=== PATIENT | female | born 1990 | race Two or more races ===

== ENCOUNTER 2024-07-16 09:15 | Observation (INO) | payer BC, SELFPAY ==
[2024-07-11 11:24] VITALS: BMI 50.8
[2024-07-11 12:11] LABS: Basophils % (Auto) 0 % (0-2.5); Eosinophils # (Auto) 0.1 Thou/mm3 (0.0-0.5); Eosinophils % (Auto) 1 % (0-10); Hematocrit 39.9 % (36.0-46.0); Hemoglobin 13.5 g/dL (12.0-16.0); Immature Granulocytes % (Auto) 0 % (0-0); Immature Granulocytes Auto 0.04 Thou/mm3 (0.00-0.00); Lymphocytes # (Auto) 2.7 Thou/mm3 (1.0-4.8); Lymphocytes % (Auto) 24 % (10-50); Mean Corpuscular HGB Conc 33.8 g/dl (31.0-37.0); Mean Corpuscular Hemoglobin 29.7 pg (25.0-35.0); Mean Corpuscular Volume 88 fL (80-100); Monocytes # (Auto) 0.7 Thou/mm3 (0.0-0.8); Monocytes % (Auto) 6 % (0-12); Neutrophils # (Auto) 7.4 Thou/mm3 (1.8-7.7); Neutrophils % (Auto) 68 % (37-80); Nucleated Red Blood Cell % 0 /100 WBC (0); Platelet Count 401 Thou/mm3 (140-440); RDW Standard Deviation 43.6 fL (36.4-46.3); Red Blood Count 4.54 Miln/mm3 (4.00-5.20); White Blood Count 10.9 Thou/mm3 (3.6-11.0)
[2024-07-11 12:22] LABS: HCG,Qualitative Serum Positive
[2024-07-11 12:34] LABS: HIV (1&2) Antibody Rapid Non-Reactive
[2024-07-11 13:12] LABS: Hepatitis A Antibody IgM Non Reactive (Non React); Hepatitis B Core Antibody IgM Non Reactive (Non React); Hepatitis B Surface Antigen Non Reactive (Non React); Hepatitis C Antibody Non Reactive (Non React)
[2024-07-16] VITALS (113 sets, daily range): BP systolic 107–143; BP diastolic 50–90; PULSE 62–103; RESP 15–20; TEMP 36.2–36.8; O2SAT 91–99; BMI 52.1
[2024-07-16] MEDS: RINGERS LACTATED 1000 ML 1,000 ML 20 ML IV (06:24)
[2024-07-16] MEDS: INDOMETHACIN 25 MG CAPSULE 50 MG PO ×2 (07:09→13:32)
--- NOTE | 2024-07-16 07:20 | CHAP ---
Visited briefly with patient giving words of encouragement and prayer.
--- NOTE | 2024-07-16 07:31 | XR_ITS ---
Examination: age Limited TECHNIQUE: Limited transabdominal sonographic images pelvis Exam date and time: July 16, 2024 0743 hours INDICATIONS: 18 week preop cervical cerclage today position requires heart tones FINDINGS: Cardiac motion 136 BPM IMPRESSION: Cardiac motion 136 BPM
--- NOTE | 2024-07-16 07:44 | PD.LDHP ---
Documentation for date of: 07/16/24 OB Labor/Induct. HPI History of Present Illness History of sections: Yes (x1) History of present illness: 34 y/o @17w5d admitted for a history indicated cerclage. Gestational age was confirmed by first trimester ultrasound at bedside in the office patient has a normal NIPT is waiting for her anatomy scan. Patient was counseled about the other option of waiting to see what is her cervical length in this to confirm cervical shortening. However patient desires to go forward with the cervical encerclage as she does not want the same thing to happen in this . Significant history of 23-week cervical incompetence where she came complaining of mucus discharge and was found to be advanced dilated with breech presentation. Patient denied any bleeding or infection at that . Patient had classical because of breech presentation. H/O HTN and diabetes . History of Present Dating criteria: LMP confirmed by 1st trimester US Labs Maternal Blood Type: AB Pos Narrative: Maternity test low risk of aneuploidy Past Medical History Surgical History SURGICAL: Positive Section (x1) Meds Home Medications and Allergies Home Medications ?Medication ?Instructions ?Recorded ?Confirmed ?Type aspirin 81 mg capsule 81 mg PO QDAY 07/11/24 07/16/24 History vit no.95-ferrous 1 tab PO DAILY 07/11/24 07/11/24 History fumarate 28 mg-folic acid 800 mcg tablet () Allergies Allergy/AdvReac Type Severity Reaction Status Date / Time No Known Allergies Allergy Verified 07/16/24 08:34 OB Exam Physical Exam Vital signs: Temp Pulse Resp BP Pulse Ox 97.2 F 83 17 143/77 H 96 07/16/24 07:09 07/16/24 06:18 07/16/24 06:18 07/16/24 06:18 07/16/24 06:18 Constitutional Constitutional: no acute distress Routine HEENT Exam Head: Present normocephalic and atraumatic Eye: Present EOMI and PERRL ENT: Present mucous membranes moist Routine Neck Exam Neck: Present supple and trachea midline Routine Cardiovascular Exam Cardiovascular: Present RRR Routine Abdominal Exam Abdominal: Present soft and normoactive bowel sounds Routine Extremities Exam Extremities: Present full ROM Routine Skin Exam Skin: Present intact, dry and warm Routine Neurological Exam Neurological: Present alert, oriented X3 and CN II-XII intact Routine Psychiatric Exam Psychiatric: Present normal affect and normal thought process OB Results Labs 07/11/24 11:42 Impressions Impression: 34-year-old 5 para 0-1-3-1 at 17w5d admitted for history indicated cervical encerclage. History of 23-week classical secondary to cervical incompetence Today heart tones were obtained both by Doppler and ultrasound Indomethacin given OB Assessment & Plan Assessment and Plan (1) History of cervical incompetence: Status: Acute Additional Plan Additional Plan Comment: Proceed for cerclage placement
--- NOTE | 2024-07-16 08:07 | XR_ITS ---
Examination: age Limited TECHNIQUE: Limited transabdominal sonographic images pelvis Exam date and time: July 16, 2024 0908 hours INDICATIONS: Post procedure, cervical cerclage today FINDINGS: Viable intrauterine gestation Cardiac motion 135 BPM Amniotic fluid index 7.4 cm IMPRESSION: Cardiac motion 135 BPM
--- NOTE | 2024-07-16 08:50 | SUR.PHASEI ---
0850 Patient arrived to recovery resting comfortably in [facility], drowsy and talking with this conventional underwriter, breathing unlabored, vital signs stable, denies pain, dressing intact to vaginal area; peripad, no bleeding noted, lung sounds clear upon auscultation, bilateral radial pulses present when palpated, report received from Dr. Carrion and Alan CHAVARRIA
--- NOTE | 2024-07-16 09:10 | SUR.PHASEI ---
0910 Dr. Mitchell at bedside during ultrasound, no new orders noted, patient tolerated ultrasound well, denies pain
--- NOTE | 2024-07-16 09:20 | ESOP_ITS ---
Operative Note - DEBT RECOVERY OFFICER Procedure Date of procedure: 07/16/24 Procedure Performed: Cervical encerclage Indication: History indicated History of 23-week classical done secondary to cervical incompetence presenting and advanced cervical dilation and baby being breech presentation Gestational age confirmed by first trimester ultrasound Aneuploidy ruled out Pre-Op diagnosis: Same Post-Op diagnosis: Same Anesthesia type: General Procedure description: Patient was taken to the operating room. General anesthesia was given without any complications.? A time out was given confirming Katharina Albert was undergoing the following, procedure,allergies, and surgeon.The patient was positioned in the dorsal lithotomy position. The bladder was emptied. The perineum was prepped with Betadine solution per routine. On examination cervix was looking very fragile and was bleeding to touch indicating possible cervicitis. Flagyl was ordered IntraOp. External os was open however internal os appeared on speculum examination to be closed. patient was placed in deep Tr endelenburg position. Gloved fingers were inserted to push the membranes up. Ring forceps were used to grasp anterior and posterior lip of the cervix. Using Mersilene tape, a deep bite into the cervical stroma was taken at 12 o'clock position coming out at 10 o'clock position and a pursestring suture was placed all around the cervix avoiding 3:00 and 9 o'clock position. Care was taken not to go through into the endocervical canal and cerclage was tightened at 12 o'clock position and long stitch was kept for easy removal after secure knots. Patient was transferred in stable condition to recovery Estimated blood loss (ml): 5 Surgical staff Operation Date: 07/16/24 07:30 Case Staff Anesthesiologist: Howard Carrion RNoffice services associate: Chiquis Singleton Diagnosis Problem List Completed Was Problem List Reviewed/Reconciled?: Yes
--- NOTE | 2024-07-16 09:25 | SUR.PHASEII ---
4102 patient eating ice chips; tolerating well, patient at bedside
--- NOTE | 2024-07-16 09:47 | SUR.PHASEII ---
0942 Report given to Richi CHAVARRIA, patient meets discharge criteria from recovery, awake and alert, breathing unlabored, vital signs stable, denies pain, dressing intact; no bleeding noted, patient eating ice chips;tolerating well, denies nausea, patient at bedside with patient. 0947 Patient transported via gurney to room 458 without incident.
[2024-07-16] MEDS: ceFAZolin/D5W 1 GM IVPB 1 GM/50 ML BAG IV (10:26)
--- NOTE | 2024-07-16 17:00 | XR_ITS ---
Examination: Complete OB ultrasound greater than 14 weeks Date and time of exam: July 16, 2024 7004 hours INDICATIONS: Status post cervical cerclage today Findings: Viable intrauterine single fetus with single amniotic sac presentation cephalic Cardiac motion 152 BPM Placenta posterior grade 1 Umbilical cord insertion 3 vessel seen Amniotic fluid adequate Cervix 3.3 cm closed spine posterior. Composite estimated gestational age based on BPD, head circumference, abdominal circumference, femur length is 18 weeks 3 days Estimated weight 228 g Ovaries obscured by bowel gas. Survey of intracranial anatomy, spinal anatomy, abdominal anatomy, four-chamber heart performed with no abnormalities identified. Impression: Viable intrauterine gestation in cephalic presentation Cervix 3.3 cm closed.
== END 2024-07-16 18:50 | disposition home or self-care (01) ==
LOC: S4SX 09:52
PROVIDERS: Admitting Provider Student in an Organized Health Care Education/Training Program; PCP Family Medicine; Referring Provider Student in an Organized Health Care Education/Training Program; Visit Provider Student in an Organized Health Care Education/Training Program
PROC: 0UVC7ZZ Restriction of Cervix, Via Natural or Artificial Opening (ICD-10-PCS; CPT 57700; principal; 2024-07-16 07:30)
DX: O34.32 Maternal care for cervical incompetence, second trimester (principal); Z3A.23 23 weeks gestation of pregnancy
CPT/HCPCS: 59320; 36415; 76805; 76815; 80074; 84703; 85025; 86703; 86850; 86900; 86901; A4217; A4649; G0378; J0689; J1200; J2371; J2704; J2765; J3010; J7120; A9270

== ENCOUNTER 2024-11-18 10:12 | Outpatient (CLI) | payer BC, SELFPAY ==
[2024-11-18 10:25] VITALS: BP 140/83; PULSE 78
[2024-11-18 10:30] VITALS: BP 144/84; PULSE 88; RESP 16; RESP 99; TEMP 36.4; BMI 50.5
[2024-11-18 10:35] VITALS: BP 145/87; PULSE 56
[2024-11-18 10:42] VITALS: BP 128/71; PULSE 61
[2024-11-18] MEDS: BETAMET ACET/BETAMET NA PH (Celestone) 6 MG/ML VIAL 12 MG IM (10:47)
== END 2024-11-18 11:02 | disposition home or self-care (01) ==
LOC: S4S1 10:15 → S4SX 10:15
PROVIDERS: Referring Provider Student in an Organized Health Care Education/Training Program; Visit Provider Student in an Organized Health Care Education/Training Program
DX: Z34.83 Encounter for supervision of other normal pregnancy, third trimester (principal); Z36.9 Encounter for antenatal screening, unspecified; Z3A.35 35 weeks gestation of pregnancy
CPT/HCPCS: 59025; 96372; J0702

== ENCOUNTER 2024-11-20 08:22 | Outpatient (RCR) | payer BC, SELFPAY ==
--- NOTE | 2024-11-10 08:42 | XR_ITS ---
Examination: Biophysical profile, ultrasound Date and time of exam: November 10, 2024 0854 hours INDICATIONS: Examination for supervision of normal Technique: Multiple transabdominal sonographic images of the pelvis abdomen obtained. Attention is directed to the breathing movement, gross body movement, amniotic fluid volume and tone. Findings: Amniotic fluid index 18.7 cm Total biophysical profile is 8 of 8. breathing movement is 2. Gross body movement is 2. tone is 2. Qualitative amniotic fluid volume is 2 Impression: Biophysical profile is 8 of 8.
[2024-11-10 09:48] VITALS: BP 114/76; PULSE 76; RESP 17; TEMP 36.4
--- NOTE | 2024-11-13 08:22 | XR_ITS ---
Examination: Biophysical profile, ultrasound Date and time of exam: November 13, 2024 0849 hours INDICATIONS: Diagnosis examination for supervision of normal Technique: Multiple transabdominal sonographic images of the pelvis abdomen obtained. Attention is directed to the breathing movement, gross body movement, amniotic fluid volume and tone. Findings: Amniotic fluid 15.4 cm Total biophysical profile is 8 of 8. breathing movement is 2. Gross body movement is 2. tone is 2. Qualitative amniotic fluid volume is 2 Impression: Biophysical profile is 8 of 8.
[2024-11-13 09:10] VITALS: BP 130/65; PULSE 76; RESP 16; TEMP 36.1
--- NOTE | 2024-11-17 08:36 | XR_ITS ---
Examination: Biophysical profile, ultrasound Date and time of exam: November 17, 2024 0837 hours INDICATIONS: Supervision of normal Technique: Multiple transabdominal sonographic images of the pelvis abdomen obtained. Attention is directed to the breathing movement, gross body movement, amniotic fluid volume and tone. Findings: Amniotic fluid index 14.9 cm Total biophysical profile is 8 of 8. breathing movement is 2. Gross body movement is 2. tone is 2. Qualitative amniotic fluid volume is 2 Impression: Biophysical profile is 8 of 8.
[2024-11-17 09:09] VITALS: BP 147/87; PULSE 90; RESP 16; TEMP 36.7
[2024-11-17] MEDS: BETAMET ACET/BETAMET NA PH (Celestone) 6 MG/ML VIAL 12 MG IM (10:00)
[2024-11-17 10:35] LABS: Basophils # (Auto) 0.0 Thou/mm3 (0.0-0.2); Basophils % (Auto) 0 % (0-2.5); Eosinophils # (Auto) 0.1 Thou/mm3 (0.0-0.5); Eosinophils % (Auto) 1 % (0-10); Hematocrit 38.7 % (36.0-46.0); Hemoglobin 13.0 g/dL (12.0-16.0); Immature Granulocytes Auto 0.03 Thou/mm3 (0.00-0.00); Lymphocytes # (Auto) 2.0 Thou/mm3 (1.0-4.8); Lymphocytes % (Auto) 21 % (10-50); Mean Corpuscular HGB Conc 33.6 g/dl (31.0-37.0); Mean Corpuscular Hemoglobin 29.9 pg (25.0-35.0); Mean Corpuscular Volume 89 fL (80-100); Monocytes # (Auto) 0.6 Thou/mm3 (0.0-0.8); Monocytes % (Auto) 6 % (0-12); Neutrophils # (Auto) 6.6 Thou/mm3 (1.8-7.7); Neutrophils % (Auto) 71 % (37-80); Nucleated Red Blood Cell # 0.00 Thou/mm3 (0.00-0.00); Nucleated Red Blood Cell % 0 /100 WBC (0); Platelet Count 313 Thou/mm3 (140-440); RDW Standard Deviation 45.6 fL (36.4-46.3); Red Blood Count 4.35 Miln/mm3 (4.00-5.20); White Blood Count 9.3 Thou/mm3 (3.6-11.0)
[2024-11-17 10:38] LABS: Collection Type, Urine Clean Catch
[2024-11-17 11:01] LABS: Bacteria,Urine Rare; Bilirubin,Urine Negative (Negative); Blood,Urine Negative (Negative); Clarity,Urine Turbid (Clear/Hazy); Color,Urine Yellow (Lt Yel-Yel); Glucose, Urine Negative (Negative); Ketones,Urine Negative (Negative); Leukocyte Esterase,Urine Positive (Negative); Nitrite,Urine Negative (Negative); PH,Urine 6.0 (5.0-7.0); Protein,Urine 1+ (Neg - Trace); RBC,Urine 6 /hpf (0-3); Specific Gravity,Urine 1.026 (1.001-1.035); Squamous Epithelial Cell,Urine 37 /hpf (0-5); Urobilinogen,Urine 3.0 mg/dL (0.0-1.0); WBC,Urine 19 /hpf (0-5)
[2024-11-17 11:13] LABS: Fibrinogen 578 mg/dL (175-375); INR 0.9 (0.9-1.3); Partial Thromboplastin Time 28.8 Seconds (22.0-36.0); Prothrombin Time 10.3 Seconds (9.0-12.2)
[2024-11-17 11:15] LABS: Alanine Aminotransferase 8 U/L (10-49); Albumin, Serum 3.5 gm/dL (3.5-5.0); Albumin/Globulin Ratio 1.4 (1.2-2.2); Alkaline Phosphatase 124 U/L (46-116); Anion Gap 9 (7-16); Aspartate Amino Transferase 12 U/L (0-34); BUN/Creatinine Ratio 9 Ratio (12-20); Bilirubin,Total 0.4 mg/dL (0.3-1.2); Blood Urea Nitrogen 6 mg/dL (9-23); Calcium 8.5 mg/dL (8.3-10.6); Calcium (Corrected) 8.9 mg/dL (8.5-10.1); Carbon Dioxide 21.7 mMol/L (20.0-31.0); Chloride 109 mMol/L (98-107); Creatinine (Component) 0.7 mg/dL (0.6-1.3); Globulin 2.5 gm/dL (2.3-3.5); Glucose 74 mg/dL (74-106); LDH (Lactate Dehydrogenase) 153 U/L (120-246); Osmolality,Calculated 276 (275-295); Potassium 3.5 mMol/L (3.4-5.1); Sodium 140 mMol/L (136-145); Total Protein 6.0 gm/dL (5.7-8.2); Uric Acid 4.8 mg/dL (3.1-7.8); eGFR > 60 See Note
--- NOTE | 2024-11-20 08:28 | XR_ITS ---
Examination: Biophysical profile, ultrasound Date and time of exam: November 20, 2024 0837 hours INDICATIONS: Supervision of normal , scheduled tomorrow preop Technique: Multiple transabdominal sonographic images of the pelvis abdomen obtained. Attention is directed to the breathing movement, gross body movement, amniotic fluid volume and tone. Findings: Amniotic fluid index 14.9 cm Total biophysical profile is 8 of 8. breathing movement is 2. Gross body movement is 2. tone is 2. Qualitative amniotic fluid volume is 2 Impression: Biophysical profile is 8 of 8.
[2024-11-20 09:03] VITALS: BP 100/55; PULSE 67; RESP 16; TEMP 36.4
== END 2024-11-20 23:59 | disposition home or self-care (01) ==
LOC: S4S1 08:22
PROVIDERS: Obstetrics & Gynecology; Referring Provider Student in an Organized Health Care Education/Training Program; Visit Provider Student in an Organized Health Care Education/Training Program
DX: Z34.83 Encounter for supervision of other normal pregnancy, third trimester (principal); Z3A.35 35 weeks gestation of pregnancy
CPT/HCPCS: 36415; 59025; 76819; 80053; 81001; 83615; 84550; 85025; 85384; 85610; 85730; 96372; J0702

== ENCOUNTER 2024-11-21 09:35 | Inpatient (IN) | payer BC, SELFPAY ==
[2024-11-21] VITALS (14 sets, daily range): BP systolic 108–153; BP diastolic 59–87; PULSE 58–79; RESP 13–21; TEMP 36.4–36.6; O2SAT 96–99; BMI 54.6
[2024-11-21 10:42] LABS: Basophils # (Auto) 0.0 Thou/mm3 (0.0-0.2); Basophils % (Auto) 0 % (0-2.5); Eosinophils # (Auto) 0.1 Thou/mm3 (0.0-0.5); Eosinophils % (Auto) 1 % (0-10); Hematocrit 40.7 % (36.0-46.0); Hemoglobin 13.9 g/dL (12.0-16.0); Immature Granulocytes Auto 0.06 Thou/mm3 (0.00-0.00); Lymphocytes # (Auto) 2.8 Thou/mm3 (1.0-4.8); Lymphocytes % (Auto) 24 % (10-50); Mean Corpuscular HGB Conc 34.2 g/dl (31.0-37.0); Mean Corpuscular Hemoglobin 30.0 pg (25.0-35.0); Mean Corpuscular Volume 88 fL (80-100); Monocytes # (Auto) 0.8 Thou/mm3 (0.0-0.8); Monocytes % (Auto) 7 % (0-12); Neutrophils # (Auto) 8.0 Thou/mm3 (1.8-7.7); Neutrophils % (Auto) 68 % (37-80); Nucleated Red Blood Cell # 0.00 Thou/mm3 (0.00-0.00); Nucleated Red Blood Cell % 0 /100 WBC (0); Platelet Count 339 Thou/mm3 (140-440); RDW Standard Deviation 44.8 fL (36.4-46.3); Red Blood Count 4.64 Miln/mm3 (4.00-5.20); White Blood Count 11.8 Thou/mm3 (3.6-11.0)
[2024-11-21 11:05] LABS: Alanine Aminotransferase 11 U/L (10-49); Albumin, Serum 3.6 gm/dL (3.5-5.0); Albumin/Globulin Ratio 1.4 (1.2-2.2); Alkaline Phosphatase 121 U/L (46-116); Anion Gap 12 (7-16); Aspartate Amino Transferase 17 U/L (0-34); BUN/Creatinine Ratio 10 Ratio (12-20); Bilirubin,Total 0.4 mg/dL (0.3-1.2); Blood Urea Nitrogen 6 mg/dL (9-23); Calcium 8.4 mg/dL (8.3-10.6); Calcium (Corrected) 8.7 mg/dL (8.5-10.1); Carbon Dioxide 20.8 mMol/L (20.0-31.0); Chloride 108 mMol/L (98-107); Creatinine (Component) 0.6 mg/dL (0.6-1.3); Estimated Creatinine Clearance 174.0 mL/min (>60); Globulin 2.6 gm/dL (2.3-3.5); Glucose 70 mg/dL (74-106); Osmolality,Calculated 276 (275-295); Potassium 3.8 mMol/L (3.4-5.1); Sodium 141 mMol/L (136-145); Total Protein 6.2 gm/dL (5.7-8.2); Uric Acid 5.2 mg/dL (3.1-7.8); eGFR > 60 See Note
[2024-11-21 11:16] LABS: Fibrinogen 430 mg/dL (175-375); INR 1.0 (0.9-1.3); Partial Thromboplastin Time 26.4 Seconds (22.0-36.0); Prothrombin Time 10.5 Seconds (9.0-12.2)
[2024-11-21 11:20] LABS: Syphilis Nonreactive (Nonreactive)
--- NOTE | 2024-11-21 11:51 | ESHP_ITS ---
Documentation for date of: 11/21/24 OB Labor/Induct. HPI History of Present Illness : 5 Para: 1 Term pregnancies: 0 pregnancies: 1 Living children: 0 History of Abortions: Spontaneous and Elective: 3 History of sections: Yes (2022) History of : No VIRGILIO: 12/19/24 Gestational Age (weeks): 36 Gestational Age (days): 0 History of present illness: 34y/o @36w0d here for repeat low-transverse . Patient had a previous history of classical c/s x1 @23 weeks. Patient came in with cervical incompetence and because of breech presentation was done. Denies PMH. Gastric sleeve surgery in 2001. gtt -ve , on Aspirin NIPT wnl. Given the history of cervical incompetence, Prophylactic cerclage placed , Anatomy is positive for pylectasis 4 mm. GTT wnl As a repeat is planned for previous classical section , Steroids 2 doses were given on and 18 November. Patient has signed sterilization consent and would like to proceed with the permanent sterilization procedure today History of Present Dating criteria: LMP confirmed by 1st trimester US Narrative: Anatomy normal except for pyelectasis of 4 mm Posterior placenta Labs Labs: Negative: RPR, Hepatitis B, Rubella Titre, HIV, Chlamydia and Gonorrhea and Unknown: Herpes Type 1, Herpes Type 2, Group Beta Strep and Covid- 19 Review of Systems Review of Systems Systems Reviewed: All systems reviewed, normal except as documented Constitutional Constitutional: Reports system reviewed and no additional complaints, except as documented, Denies fever(s) and Denies headache(s) Eyes Eyes: Reports system reviewed and no additional complaints, except as documented and Denies blurry vision ENT Ears, Nose, Mouth, and Throat: Reports system reviewed and no additional complaints, except as documented, Denies headache(s), Denies nasal congestion and Denies nasal discharge Cardiovascular Cardiovascular: Reports system reviewed and no additional complaints, except as documented, Denies chest pain and Denies dyspnea Respiratory Respiratory: Reports system reviewed and no additional complaints, except as documented, Denies chest congestion, Denies cough and Denies dyspnea Gastrointestinal Gastrointestinal: Reports system reviewed and no additional complaints, except as documented and Denies abdominal pain Genitourinary Genitourinary: Reports system reviewed and no additional complaints, except as documented and Reports abnormal vaginal bleeding Integumentary/Breasts Skin/Breast: Reports system reviewed and no additional complaints, except as documented and Denies rash Neurologic Neurologic: Reports system reviewed and no additional complaints, except as documented, Reports as per HPI and Denies headache(s) Past Medical History Surgical History SURGICAL: Positive Section (2022) Meds Home Medications and Allergies Home Medications ?Medication ?Instructions ?Recorded ?Confirmed ?Type aspirin 81 mg capsule 81 mg PO QDAY 07/11/2411/21 History vit no.95-ferrous 1 tab PO DAILY 07/11/2405/17 History fumarate 28 mg-folic acid 800 mcg tablet () Allergies Allergy/AdvReac Type Severity Reaction Status Date / Time No Known Allergies Allergy Verified 11/21/24 11:00 OB Exam Physical Exam Vital signs: Pulse BP 78 140/86 H 11/21/24 09:53 11/21/24 09:53 Constitutional Constitutional: no acute distress Routine HEENT Exam Head: Present normocephalic and atraumatic Eye: Present EOMI and PERRL ENT: Present mucous membranes moist Routine Neck Exam Neck: Present supple and trachea midline Routine Cardiovascular Exam Cardiovascular: Present RRR Routine Abdominal Exam Abdominal: Present soft and normoactive bowel sounds Detailed Labor and Delivery Exam Comments: Category 1 heart tone No contractions Routine Extremities Exam Extremities: Present full ROM Routine Skin Exam Skin: Present intact, dry and warm Routine Neurological Exam Neurological: Present alert, oriented X3 and CN II-XII intact Routine Psychiatric Exam Psychiatric: Present normal affect and normal thought process OB Results Labs 11/21/24 10:20 11/21/24 10:20 Labs: Short CBC 11/21/24 Range/Units 10:20 WBC 11.8 H (3.6-11.0) Thou/mm3 Hgb 13.9 (12.0-16.0) g/dL Hct 40.7 (36.0-46.0) % Plt Count 339 (140-440) Thou/mm3 BMP 11/21/24 10:20 Sodium 141 Potassium 3.8 Chloride 108 H Carbon Dioxide 20.8 BUN 6 L Creatinine 0.6 Glucose 70 L Calcium 8.4 Liver Function 11/21/24 Range/Units 10:20 Total Bilirubin 0.4 (0.3-1.2) mg/dL AST 17 (0-34) U/L ALT 11 (10-49) U/L Alkaline Phosphatase 121 H (46-116) U/L Albumin 3.6 (3.5-5.0) gm/dL Impressions Impression: 34-year-old admitted for repeat low-transverse for a previous classical history at 36 weeks. Betamethasone x 2 given Anatomy posterior placenta Desires sterilization consent signed Cervical send cerclage placed in second trimester will be removed before the C- section OB Assessment & Plan Additional Plan Additional Plan Comment: Repeat low-transverse Bilateral salpingectomy Cerclage removal Antibiotic prophylaxis DVT prophylaxis
[2024-11-21] MEDS: ceFAZolin/D5W 2 GM IV 2 GM/100 ML BAG IV (12:13)
[2024-11-21] MEDS: METOCLOPRAMIDE INJ 5 MG/ML VIAL 2 ML 10 MG IVP (12:13)
[2024-11-21] MEDS: ceFAZolin/D5W 1 GM IVPB 1 GM/50 ML BAG IV (12:13)
[2024-11-21] MEDS: FAMOTIDINE INJ 10 MG/ML VIAL 2 ML 20 MG IV (12:14)
[2024-11-21] MEDS: MEPERIDINE INJ 50 MG/ML VIAL IVP (13:38)
[2024-11-21] MEDS: OXYTOCIN in NS 20 units 20 UNIT/1,000 ML BAG 125 UNIT IV ×2 (15:12→23:13)
--- NOTE | 2024-11-21 16:07 | ESOP_ITS ---
Operative Note - COLLECTIONS TECHNICIAN Procedure Date of procedure: 11/21/24 Procedure Performed: cervical cerclage removal Repeat low transverse C section bilateral salpingectomy Indication: previous classical Csection desitres sterilisatuion History indicated cerclage placement morbid obesity Pre-Op diagnosis: same Post-Op diagnosis: same Anesthesia type: Spinal Procedure description: Informed consent was obtained and the patient was taken to the operating room.? Identity was confirmed by double identifiers and she was placed on the operating table.The abdomen and perineum were prepped in the usual sterile fashion and a Us catheter was placed to continuous drainage.? Sterile drapes were applied.??A Pfannenstiel skin incision was made with a scalpel and carried to the subcutaneous fat up to the rectus fascia.? The rectus fascia was incised on either side of the midline and the incisions were extended bilaterally.? The fascia was gently dissected off the ventral surface of the rectus muscle only superiorly. peritoneum opened after making sure no adhesions are there underneath. bladder flap carefully created, then hysterotomy incision made and extended bluntly with finger. placenta edge was Rupture of membranes revealed clear fluid. The baby was found in cephalic presentation and was delivered via vertex. the umbilical cord , was doubly clamped, divided and the infant was handed over to the waiting team. The placenta delivered by controlled cord traction . The interior of the uterus was now thorougly cleaned of all blood and debris and membranes.?The? hysterotomy was closed using 0 vicryl suture in double layers. Once the repair was completed the hysterotomy was inspected, was noted to be adequately hemostatic.. Bilateral salpingectomy done with enseal Then the rectus fascia was repaired using Vicryl 0 in a running fashion.? The subcutaneous layer was now, approximated with 3-0 vicryl in double layers.? All bleeding points were cauterized using the Bovie.?The skin was closed using 4-0 Monocryl in a subcuticular fashion.? The skin was cleaned and a sterile dressing was applied. The patient was now undraped, the abdomen and back were thoroughly cleaned and she was now transferred to the recovery room in a stable condition. Cervical encerclage was removed through a vaginal procedure Estimated blood loss (ml): 500 Complications: none Surgical staff Operation Date: 11/21/24 12:30 Case Staff REFRACTORY GRINDER OPERATOR: Irwin Ray RN First Assistant: Jaiden Jett Diagnosis Problem List Completed Was Problem List Reviewed/Reconciled?: Yes
--- NOTE | 2024-11-21 16:12 | PD.LDDELS ---
Data (Hernandez) Data Hx Section: Yes (2022) : 5 Term: 0 : 1 Livin Abortions: Spontaneous & Theraputic: 3 Delivery Data (Hernandez) Labor Data Induction/Augmentation Agent: None ROM date: 11/21/24 ROM time: : Amniotic membrane rupture type: Artificial Amniotic fluid description: Clear Delivery Data delivery date: 11/21/24 Hodges delivery time: : Placenta delivery date: 11/21/24 Placenta delivery time: :33 Delivered by: Hota Delivery nurse: Yamileth Melara nurse: Odilia Olson Painting Department Supervisor at delivery: Yes (Dr. Zimmerman) Delivery Method Delivery method: Low Transverse Presentation: Vertex Anesthesia Type Anesthesia Type: Spinal Anesthesia type: Spinal Placenta Placenta delivery description: Manual Removal Cord blood sent to lab: Yes cord blood collection: Cord Blood Type Episiotomy Episiotomy description: None EBL Estimated blood loss (ml): 500 Umbilical Cord cord description: 3 Vessels and Nuchal Cord Hodges Data (Hernandez) Hodges Data 's gender: Female Identification band number: [id number] weight (gms): 2940 g Weight (pounds): 6 lbs and 7.7 ozs Hodges length: 49.5 cm 1 minute: 8 5 minutes: 9
[2024-11-21 19:12] LABS: Basophils # (Auto) 0.1 Thou/mm3 (0.0-0.2); Basophils % (Auto) 0 % (0-2.5); Eosinophils # (Auto) 0.1 Thou/mm3 (0.0-0.5); Eosinophils % (Auto) 0 % (0-10); Hematocrit 36.5 % (36.0-46.0); Hemoglobin 12.5 g/dL (12.0-16.0); Immature Granulocytes Auto 0.07 Thou/mm3 (0.00-0.00); Lymphocytes # (Auto) 2.3 Thou/mm3 (1.0-4.8); Lymphocytes % (Auto) 14 % (10-50); Mean Corpuscular HGB Conc 34.2 g/dl (31.0-37.0); Mean Corpuscular Hemoglobin 30.2 pg (25.0-35.0); Mean Corpuscular Volume 88 fL (80-100); Monocytes # (Auto) 0.8 Thou/mm3 (0.0-0.8); Monocytes % (Auto) 5 % (0-12); Neutrophils # (Auto) 13.1 Thou/mm3 (1.8-7.7); Neutrophils % (Auto) 80 % (37-80); Nucleated Red Blood Cell # 0.00 Thou/mm3 (0.00-0.00); Nucleated Red Blood Cell % 0 /100 WBC (0); Platelet Count 301 Thou/mm3 (140-440); RDW Standard Deviation 44.6 fL (36.4-46.3); Red Blood Count 4.14 Miln/mm3 (4.00-5.20); White Blood Count 16.3 Thou/mm3 (3.6-11.0)
[2024-11-22] VITALS: BP 150/87; PULSE 85; RESP 18; TEMP 36.9; O2SAT 98
[2024-11-22 04:00] VITALS: BP 133/87; PULSE 97; RESP 16; TEMP 36.9; O2SAT 96
[2024-11-22 08:00] VITALS: BP 140/89; PULSE 83; RESP 18; TEMP 36.9; O2SAT 97
--- NOTE | 2024-11-22 10:39 | ESPR_ITS ---
Subjective Subjective Interval history: Delivery type: and cerclage removal in the OR Patient doing well this morning. No acute complaints. Ambulating, tolerating p.o. and voiding without difficulty. HTN/Pre-Eclampsia screen: No chest pain, shortness of breath, headache, visual changes, epigastric or right upper quadrant pain. Breast-feeding, lochia diminishing. Bowel: Flatus+ Exam Vital Signs Temp Pulse Resp BP Pulse Ox O2 Del Method 98.5 F 83 18 140/89 H 97 Room Air 11/22/24 08:00 11/22/24 08:00 11/22/24 08:00 11/22/24 08:00 11/22/24 08:00 11/22/24 08:00 Constitutional Constitutional: no acute distress Routine HEENT Exam Head: Present normocephalic and atraumatic Eye: Present EOMI and PERRL ENT: Present mucous membranes moist Routine Neck Exam Neck: Present supple and trachea midline Routine Respiratory Exam Respiratory: Present chest non-tender, lungs clear, normal breath sounds and no resp distress Routine Cardiovascular Exam Cardiovascular: Present RRR Routine Abdominal Exam Abdominal: Present soft and normoactive bowel sounds Routine Extremities Exam Extremities: Present full ROM Routine Skin Exam Skin: Present intact, dry and warm Routine Neurological Exam Neurological: Present alert, oriented X3 and CN II-XII intact Routine Psychiatric Exam Psychiatric: Present normal affect and normal thought process Objective Labs 11/21/24 18:22 11/21/24 10:20 Labs: Laboratory Results - last 24 hr 11/21/24 11/21/24 11/21/24 10:20 10:54 18:22 WBC 11.8 H 16.3 H RBC 4.64 4.14 Hgb 13.9 12.5 Hct 40.7 36.5 MCV 88 88 MCH 30.0 30.2 MCHC 34.2 34.2 RDW Std Deviation 44.8 44.6 Plt Count 339 301 D Neut % (Auto) 68 80 Lymph % (Auto) 24 14 [place] % (Auto) 7 5 Eos % (Auto) 1 0 Baso % (Auto) 0 0 Neut # (Auto) 8.0 H 13.1 H Lymph # (Auto) 2.8 2.3 [place] # (Auto) 0.8 0.8 Eos # (Auto) 0.1 0.1 Baso # (Auto) 0.0 0.1 Immature Gran # (Auto) 0.06 H 0.07 H Absolute Nucleated RBC 0.00 0.00 Immature Gran % 1 H 0 Nucleated RBC % 0 0 PT 10.5 INR 1.0 APTT 26.4 Fibrinogen 430 H Sodium 141 Potassium 3.8 Chloride 108 H Carbon Dioxide 20.8 Anion Gap 12 BUN 6 L Creatinine 0.6 Estim Creat Clear Calc 174.0 eGFR > 60 BUN/Creatinine Ratio 10 L Glucose 70 L Calculated Osmolality 276 Uric Acid 5.2 Calcium 8.4 Corrected Calcium 8.7 Total Bilirubin 0.4 AST 17 ALT 11 Alkaline Phosphatase 121 H Total Protein 6.2 Albumin 3.6 Globulin 2.6 Albumin/Globulin Ratio 1.4 Syphilis Serology Nonreactive Blood Type AB Positive Antibody Screen NEGATIVE Blood Bank Wristband ID Yes Assessment & Plan Problem List (1) History of cervical incompetence: Status: Acute (2) delivery delivered: Status: Acute Assessment and plan: 1. Continue routine /post-op care 2. Labs reviewed, cbc appropriate 3. Remove dressing/Us 4. Encourage to ambulate, shower 5. Encourage PO intake, breast feeding Time Spent With Patient Time: Total time spent is greater than 50% in coordination of care (as documented) at patient's floor/unit and/or counseling patient:
--- NOTE | 2024-11-22 10:40 | PD.LDDS ---
DS: Providers Provider Date of admission: 11/21/24 09:35 Primary care physician: Physician No Primary/Family Admitting Provider: Angelina Mitchell MD Attending Provider on Admission: Tyson Lu MD Consults: 11/21/24 12:21 Referral Routine Comment: Attending Provider on DC: Tyson Lu MD Discharging Provider: Tyson Lu MD DS: Diagnosis Discharge Diagnosis (1) History of cervical incompetence: Status: Acute (2) delivery delivered: Status: Acute Problem List Completed Was Problem List Reviewed/Reconciled?: Yes Summary/Hosp Course Brief History: 34y/o @36w0d here for repeat low-transverse . Patient had a previous history of classical c/s x1 @23 weeks. Patient came in with cervical incompetence and because of breech presentation was done. Denies PMH. Gastric sleeve surgery in 2001. gtt -ve , on Aspirin NIPT wnl. Given the history of cervical incompetence, Prophylactic cerclage placed , Anatomy is positive for pylectasis 4 mm. GTT wnl As a repeat is planned for previous classical section , Steroids 2 doses were given on and 18 November. Patient has signed sterilization consent and would like to proceed with the permanent sterilization procedure today Peripartum Data Delivery Method: Low Transverse Episiotomy Description: None Procedures: Procedures Operation Date: 11/21/24 12:30 Actual Procedure Side Surgeon p w/tubal OB Angelina Mitchell MD Time Spent with Patient Time attestation: Total time spent providing and/or coordinating discharge services: Exam Vital Signs Temp Pulse Resp BP Pulse Ox O2 Del Method 98.5 F 83 18 140/89 H 97 Room Air 11/22/24 08:00 11/22/24 08:00 11/22/24 08:00 11/22/24 08:00 11/22/24 08:00 11/22/24 08:00 Discharge Plan Plan Patient Disposition: HOME (Self Care) Patient condition on transfer: Stable Prescriptions/Referrals Prescriptions/Med Rec: New hydrocodone-acetaminophen 5-325 mg Tablet 1 tab PO Q6HR MDD 4 PRN (Reason: Patient rated pain 9 to 10) 5 Days Qty: 20 0RF ibuprofen 400 mg Tablet 800 mg PO Q8H PRN (Reason: See Comments) 10 Days Qty: 40 0RF docusate sodium [Stool Softener] 100 mg capsule 100 mg PO QDAY 30 Days Qty: 30 0RF Continued PNV no.95-ferrous fumarate-FA [] 28 mg iron- 800 mcg tablet 1 tab PO DAILY Discontinued aspirin 81 mg capsule 81 mg PO QDAY Referrals: Angelina Mitchell MD [Physician] - No Primary/Family,Physician [Primary Care Provider] - Patient/Caregiver Discharge Instructions Education Materials: After Delivery Concerns, Breast Care After , After a , Nutrition While , Understanding Depression, : Caring for Yourself, C Section Dc, Feel Healthy After Print Language: Armenian Stand Alone Forms: Syl Award Info., Patient Portal Info Letter, DC from Surgery Discharge Order Discharge Orders: Discharge (Routine); Ordered 11/23/24 Ordered By: Tyson Lu Planned Discharge Date 11/23/24
[2024-11-22] MEDS: Milk Of Magnesia Susp 30 ML UDC PO (11:44)
[2024-11-22] MEDS: DOCUSATE SOD 100 MG CAPSULE PO (11:44)
[2024-11-22 11:45] LABS: Basophils # (Auto) 0.1 Thou/mm3 (0.0-0.2); Basophils % (Auto) 0 % (0-2.5); Eosinophils # (Auto) 0.2 Thou/mm3 (0.0-0.5); Eosinophils % (Auto) 2 % (0-10); Hematocrit 37.9 % (36.0-46.0); Hemoglobin 13.0 g/dL (12.0-16.0); Immature Granulocytes Auto 0.06 Thou/mm3 (0.00-0.00); Lymphocytes # (Auto) 2.1 Thou/mm3 (1.0-4.8); Lymphocytes % (Auto) 16 % (10-50); Mean Corpuscular HGB Conc 34.3 g/dl (31.0-37.0); Mean Corpuscular Hemoglobin 30.2 pg (25.0-35.0); Mean Corpuscular Volume 88 fL (80-100); Monocytes # (Auto) 0.9 Thou/mm3 (0.0-0.8); Monocytes % (Auto) 7 % (0-12); Neutrophils # (Auto) 9.5 Thou/mm3 (1.8-7.7); Neutrophils % (Auto) 74 % (37-80); Nucleated Red Blood Cell # 0.00 Thou/mm3 (0.00-0.00); Nucleated Red Blood Cell % 0 /100 WBC (0); Platelet Count 315 Thou/mm3 (140-440); RDW Standard Deviation 45.6 fL (36.4-46.3); Red Blood Count 4.31 Miln/mm3 (4.00-5.20); White Blood Count 12.9 Thou/mm3 (3.6-11.0)
[2024-11-22 12:00] VITALS: BP 134/84; PULSE 95; RESP 18; TEMP 36.9; O2SAT 97
[2024-11-22 19:53] VITALS: BP 137/83; PULSE 90; RESP 19; TEMP 36.5; O2SAT 97
[2024-11-22] MEDS: HYDROcodone/APAP 5/325 TABLET 1 TAB PO (20:36)
[2024-11-23 04:10] VITALS: BP 125/78; PULSE 79; RESP 21; TEMP 36.6; O2SAT 95
[2024-11-23 08:00] VITALS: BP 131/87; PULSE 96; RESP 18; TEMP 36.7; O2SAT 97
--- NOTE | 2024-11-23 08:10 | ESPR_ITS ---
Subjective Subjective Interval history: Delivery type: Patient doing well this morning. No acute complaints. Ambulating, tolerating p.o. and voiding without difficulty. HTN/Pre-Eclampsia screen: No chest pain, shortness of breath, headache, visual changes, epigastric or right upper quadrant pain. Breast-feeding, lochia diminishing. Bowel: Flatus+/ BM+ Exam Vital Signs Temp Pulse Resp BP Pulse Ox O2 Del Method 97.9 F 79 21 H 125/78 95 Room Air 11/23/24 04:10 11/23/24 04:10 11/23/24 04:10 11/23/24 04:10 11/23/24 04:10 11/23/24 04:10 Constitutional Constitutional: no acute distress Routine HEENT Exam Head: Present normocephalic and atraumatic Eye: Present EOMI and PERRL ENT: Present mucous membranes moist Routine Neck Exam Neck: Present supple and trachea midline Routine Respiratory Exam Respiratory: Present chest non-tender, lungs clear, normal breath sounds and no resp distress Routine Cardiovascular Exam Cardiovascular: Present RRR Routine Abdominal Exam Abdominal: Present soft and normoactive bowel sounds Routine Extremities Exam Extremities: Present full ROM Routine Skin Exam Skin: Present intact, dry and warm Routine Neurological Exam Neurological: Present alert, oriented X3 and CN II-XII intact Routine Psychiatric Exam Psychiatric: Present normal affect and normal thought process Objective Labs 11/22/24 11:25 11/21/24 10:20 Labs: Laboratory Results - last 24 hr 11/22/24 11:25 WBC 12.9 H RBC 4.31 Hgb 13.0 Hct 37.9 MCV 88 MCH 30.2 MCHC 34.3 RDW Std Deviation 45.6 Plt Count 315 Neut % (Auto) 74 Lymph % (Auto) 16 [place] % (Auto) 7 Eos % (Auto) 2 Baso % (Auto) 0 Neut # (Auto) 9.5 H Lymph # (Auto) 2.1 [place] # (Auto) 0.9 H Eos # (Auto) 0.2 Baso # (Auto) 0.1 Immature Gran # (Auto) 0.06 H Absolute Nucleated RBC 0.00 Immature Gran % 1 H Nucleated RBC % 0 Assessment & Plan Problem List (1) History of cervical incompetence: Status: Acute (2) delivery delivered: Status: Acute Assessment and plan: PPD/POD#2 1. Continue routine care 2. Transition to PO meds. 3. Encourage to ambulate/ breast-feed 4. Anticipate discharge home today. Time Spent With Patient Time: Total time spent is greater than 50% in coordination of care (as documented) at patient's floor/unit and/or counseling patient:
[2024-11-23] MEDS: IBUPROFEN TAB 400 MG TABLET 800 MG PO (08:21)
--- NOTE | 2024-11-23 13:00 | CHAP ---
Patient was visited by the Spiritual Care Volunteer who prayed for them. (Volunteer was in the hospital from 09:00-13:00).
== END 2024-11-23 12:33 | disposition home or self-care (01) | DRG 783 ==
LOC: S4SX 09:37 → S4NX 13:12
PROVIDERS: Admitting Provider Student in an Organized Health Care Education/Training Program; Visit Provider Obstetrics & Gynecology
PROC: 0UL70ZZ Occlusion of Bilateral Fallopian Tubes, Open Approach (ICD-10-PCS; CPT 59514; principal; 2024-11-21 12:15)
DX: O34.211 Maternal care for low transverse scar from previous cesarean delivery (principal); O34.33 Maternal care for cervical incompetence, third trimester; O69.81X0 Labor and delivery complicated by cord around neck, without compression, not applicable or unspecified; O99.214 Obesity complicating childbirth; E66.01 Morbid (severe) obesity due to excess calories; Z30.2 Encounter for sterilization; Z37.0 Single live birth; Z3A.36 36 weeks gestation of pregnancy; O99.844 Bariatric surgery status complicating childbirth
CPT/HCPCS: 36415; 59409; 80053; 84550; 85025; 85384; 85610; 85730; 86780; 86850; 86900; 86901; 94762; A4649; J0689; J2175; J2274; J2371; J2590; J2765; J3010; J3490; A9270; J2270